=== PATIENT | male | born 1945 | race Caucasian/White ===

== ENCOUNTER → 2017-04-20 | Outpatient (CLI) | payer MEDICARE, BC ==
[2016-05-13 09:31] VITALS: BP 132/80
[~2017-04-20] MED LIST: CIALIS5 MG PO; KEFLEX250 M1 PO; PRILOSEC 20MG20 MG PO; SILDENAFIL CITR20 MG PO; VASERETIC 10 MG1 TAB PO
== END ==
LOC: LAB 07:27
DX: Z12.11 Encounter for screening for malignant neoplasm of colon (principal); R97.20 Elevated prostate specific antigen [PSA]; I49.3 Ventricular premature depolarization; M71.20 Synovial cyst of popliteal space [Baker], unspecified knee; E78.5 Hyperlipidemia, unspecified; N52.9 Male erectile dysfunction, unspecified

== ENCOUNTER → 2017-05-12 | Outpatient (CLI) | payer MEDICARE, BC ==
[~2017-05-12] VITALS: Ht 177.8 cm; Wt 92.3 kg
[2017-05-12 10:47] VITALS: BP 128/78
== END ==
LOC: AMSURD 10:41
DX: I49.3 Ventricular premature depolarization (principal)

== ENCOUNTER → 2018-04-07 | Outpatient (CLI) | payer MEDICARE, BC ==
[~2018-04-07] VITALS: Ht 180.3 cm; Wt 89.1 kg
[2018-04-07 08:52] LABS: HEMATOCRIT 47.2 % (42.0-52.0); HEMOGLOBIN 16.1 g/dL (13.5-18.0); MEAN CELL VOLUME 96 fl (78-100); MEAN CORPUSCULAR HEMOGLOBIN 33 pg (27-31); MEAN CORPUSCULAR HGB CONC 34 g/dL (33-37); MEAN PLATELET VOLUME 9.5 fl (7.4-10.4); PLATELET COUNT 244 K/mm3 (130-400); RED BLOOD COUNT 4.94 M/mm3 (4.20-5.60); RED CELL DISTRIBUTION WIDTH 12.4 % (11.5-14.5); WHITE BLOOD COUNT 5.3 K/mm3 (4.8-10.8)
[2018-04-07 09:03] LABS: ALBUMIN 4.4 g/dL (3.5-5.0); BUN/CREATININE RATIO 16.7 (6.0-26.0); CALCIUM 9.4 mg/dL (8.4-10.2); POTASSIUM 4.5 mmol/L (3.6-5.0); TOTAL BILIRUBIN 1.3 mg/dL (0.2-1.3); TOTAL PROTEIN 7.7 g/dL (6.3-8.2)
[2018-04-07 09:31] LABS: URINE APPEARANCE CLEAR; URINE BILIRUBIN NEGATIVE (NEGATIVE); URINE BLOOD NEGATIVE (NEGATIVE); URINE COLOR YELLOW; URINE GLUCOSE NEGATIVE (NEGATIVE); URINE KETONE NEGATIVE (NEGATIVE); URINE LEUKOCYTE ESTERASE NEGATIVE (NEGATIVE); URINE NITRATE NEGATIVE (NEGATIVE); URINE PROTEIN(semi-quant) NEGATIVE (NEGATIVE); URINE UROBILINOGEN NORMAL (NORMAL); URINE WBC 0-1 /hpf (0-3)
[2018-04-07 09:33] VITALS: BP 163/99
[2018-04-07 11:19] LABS: ERYTHROCYTE SEDIMENTATION RATE 1 mm/hr (0-20)
[2018-04-07 23:08] LABS: TESTOSTERONE 985 ng/dL (221-716)
== END ==
LOC: AMSURD 08:30
PROVIDERS: Internal Medicine
DX: Z01.818 Encounter for other preprocedural examination (principal); I10 Essential (primary) hypertension; Z12.5 Encounter for screening for malignant neoplasm of prostate; Z12.11 Encounter for screening for malignant neoplasm of colon; N52.9 Male erectile dysfunction, unspecified

== ENCOUNTER → 2019-04-17 | Outpatient (CLI) | payer MEDICARE, BC ==
[2018-04-07 09:33] VITALS: BP 163/99
[2019-04-17 07:33] LABS: HEMATOCRIT 44.8 % (42.0-52.0); HEMOGLOBIN 14.9 g/dL (13.5-18.0); MEAN CELL VOLUME 96 fl (78-100); MEAN CORPUSCULAR HEMOGLOBIN 32 pg (27-31); MEAN CORPUSCULAR HGB CONC 33 g/dL (33-37); MEAN PLATELET VOLUME 9.8 fl (7.4-10.4); PLATELET COUNT 237 K/mm3 (130-400); RED BLOOD COUNT 4.65 M/mm3 (4.20-5.60); RED CELL DISTRIBUTION WIDTH 12.3 % (11.5-14.5); WHITE BLOOD COUNT 5.6 K/mm3 (4.8-10.8)
[2019-04-17 07:36] LABS: POTASSIUM 4.3 mmol/L (3.5-5.1)
[2019-04-17 07:38] LABS: CALCIUM 9.5 mg/dL (8.3-10.5)
[2019-04-17 07:39] LABS: TOTAL PROTEIN 7.6 g/dL (6.2-8.1)
[2019-04-17 07:41] LABS: TOTAL BILIRUBIN 0.9 mg/dL (0.2-1.2)
[2019-04-17 08:07] LABS: PH-URINE 5.5 (5.0 - 8.0); URINE APPEARANCE CLEAR; URINE BILIRUBIN NEGATIVE (NEGATIVE); URINE BLOOD NEGATIVE (NEGATIVE); URINE COLOR YELLOW; URINE GLUCOSE NEGATIVE (NEGATIVE); URINE KETONE NEGATIVE (NEGATIVE); URINE LEUKOCYTE ESTERASE NEGATIVE (NEGATIVE); URINE MUCUS PRESENT (NOT PRESENT); URINE NITRATE NEGATIVE (NEGATIVE); URINE PROTEIN(semi-quant) NEGATIVE (NEGATIVE); URINE UROBILINOGEN NORMAL (NORMAL)
[2019-04-17 08:11] LABS: LYMPHOCYTE 38 % (20-51); MONOCYTE 11 % (3-10); NEUTROPHILS 49 % (42-75)
[2019-04-17 08:46] LABS: ERYTHROCYTE SEDIMENTATION RATE 2 mm/hr (0-20)
== END ==
LOC: LAB 07:14
PROVIDERS: Internal Medicine
DX: Z01.818 Encounter for other preprocedural examination (principal); Z12.5 Encounter for screening for malignant neoplasm of prostate; Z12.11 Encounter for screening for malignant neoplasm of colon; I10 Essential (primary) hypertension; N52.9 Male erectile dysfunction, unspecified

== ENCOUNTER → 2019-05-03 | Outpatient (CLI) | payer MEDICARE, BC ==
[~2019-05-03] VITALS: Ht 180.3 cm; Wt 87.7 kg
[2019-05-03 11:35] VITALS: BP 126/78
== END ==
LOC: AMSURD 09:52
DX: I49.3 Ventricular premature depolarization (principal)

== ENCOUNTER → 2020-04-16 | Outpatient (CLI) | payer MEDICARE, BC ==
[2019-05-03 11:35] VITALS: BP 126/78
[2020-04-16 08:04] LABS: HEMOGLOBIN 14.9 g/dL (13.5-18.0); MEAN CELL VOLUME 98 fl (78-100); MEAN CORPUSCULAR HEMOGLOBIN 33 pg (27-31); MEAN CORPUSCULAR HGB CONC 33 g/dL (33-37); MEAN PLATELET VOLUME 9.3 fl (7.4-10.4); PLATELET COUNT 248 K/mm3 (130-400); RED BLOOD COUNT 4.58 M/mm3 (4.20-5.60); RED CELL DISTRIBUTION WIDTH 12.2 % (11.5-14.5); WHITE BLOOD COUNT 5.5 K/mm3 (4.8-10.8)
[2020-04-16 08:14] LABS: ALBUMIN 4.1 g/dL (3.4-4.8); POTASSIUM 4.8 mmol/L (3.5-5.1)
[2020-04-16 08:15] LABS: CALCIUM 9.4 mg/dL (8.3-10.5)
[2020-04-16 08:17] LABS: TOTAL PROTEIN 7.4 g/dL (6.2-8.1)
[2020-04-16 08:19] LABS: TOTAL BILIRUBIN 0.9 mg/dL (0.2-1.2)
[2020-04-16 08:49] LABS: LYMPHOCYTE 25 % (20-51); MONOCYTE 12 % (3-10); NEUTROPHILS 62 % (42-75)
[2020-04-16 09:12] LABS: ERYTHROCYTE SEDIMENTATION RATE 0 mm/hr (0-20)
== END ==
LOC: LAB 07:44
PROVIDERS: Internal Medicine
DX: Z12.11 Encounter for screening for malignant neoplasm of colon (principal); E78.5 Hyperlipidemia, unspecified; R97.20 Elevated prostate specific antigen [PSA]; I49.3 Ventricular premature depolarization; N52.03 Combined arterial insufficiency and corporo-venous occlusive erectile dysfunction

== ENCOUNTER → 2021-03-31 | Outpatient (CLI) | payer MEDICARE, BC ==
[2021-03-31 07:29] LABS: BASO # 0.03 (0.02-0.10); EOS # 0.09 (0.04-0.40); EOS % 1.7 % (0.0-4.0); HEMATOCRIT 45.4 % (42.0-52.0); LYMPH# 1.38 (1.50-4.00); MEAN CELL VOLUME 99 fl (78-100); MEAN CORPUSCULAR HEMOGLOBIN 33 pg (27-31); MEAN CORPUSCULAR HGB CONC 33 g/dL (33-37); MONO # 0.75 (0.20-0.80); NEU # 3.02 (1.40-6.50); PLATELET COUNT 229 K/mm3 (130-400); RED BLOOD COUNT 4.59 M/mm3 (4.20-5.60); RED CELL DISTRIBUTION WIDTH 11.7 % (11.5-14.5); WHITE BLOOD COUNT 5.3 K/mm3 (4.8-10.8)
[2021-03-31 07:48] LABS: POTASSIUM 4.6 mmol/L (3.5-5.1)
[2021-03-31 07:49] LABS: ALBUMIN 4.1 g/dL (3.4-4.8)
[2021-03-31 07:50] LABS: CALCIUM 9.3 mg/dL (8.3-10.5)
[2021-03-31 08:39] LABS: ERYTHROCYTE SEDIMENTATION RATE 1 mm/hr (0-20)
== END ==
LOC: LAB 07:05
PROVIDERS: Internal Medicine
DX: Z12.5 Encounter for screening for malignant neoplasm of prostate (principal); E78.2 Mixed hyperlipidemia; I10 Essential (primary) hypertension; K90.9 Intestinal malabsorption, unspecified

== ENCOUNTER → 2021-04-09 | Outpatient (CLI) | payer MEDICARE, BC | LOC: RAD 08:36 | DX: I49.3 Ventricular premature depolarization (principal) ==

== ENCOUNTER → 2022-05-12 | Outpatient (CLI) | payer MEDICARE, BC ==
[2022-05-12 10:13] LABS: BASO # 0.07 K/mm3 (0.02-0.10); EOS # 0.05 K/mm3 (0.04-0.40); EOS % 0.8 % (0.0-4.0); HEMATOCRIT 41.9 % (42.0-52.0); HEMOGLOBIN 14.3 g/dL (13.5-18.0); LYMPH# 1.09 K/mm3 (1.50-4.00); MEAN CELL VOLUME 98 fl (78-100); MEAN CORPUSCULAR HEMOGLOBIN 33 pg (27-31); MEAN CORPUSCULAR HGB CONC 34 g/dL (33-37); MEAN PLATELET VOLUME 9.2 fl (7.4-10.4); MONO # 0.71 K/mm3 (0.20-0.80); NEU # 4.53 K/mm3 (1.40-6.50); PLATELET COUNT 267 K/mm3 (130-400); RED BLOOD COUNT 4.28 M/mm3 (4.20-5.60); RED CELL DISTRIBUTION WIDTH 11.9 % (11.5-14.5); WHITE BLOOD COUNT 6.5 K/mm3 (4.8-10.8)
[2022-05-12 10:33] LABS: ALBUMIN 4.1 g/dL (3.4-4.8); POTASSIUM 4.1 mmol/L (3.5-5.1)
[2022-05-12 10:34] LABS: CALCIUM 9.3 mg/dL (8.3-10.5)
[2022-05-12 10:36] LABS: TOTAL PROTEIN 7.2 g/dL (6.2-8.1)
[2022-05-12 10:42] LABS: MAGNESIUM 1.61 mg/dL (1.60-2.60)
== END ==
LOC: LAB 09:44
PROVIDERS: Internal Medicine
DX: Z12.5 Encounter for screening for malignant neoplasm of prostate (principal); Z12.11 Encounter for screening for malignant neoplasm of colon; K90.9 Intestinal malabsorption, unspecified; I10 Essential (primary) hypertension; E78.2 Mixed hyperlipidemia

== ENCOUNTER → 2023-10-06 | Outpatient (CLI) | payer MEDICARE, BC ==
[2023-10-06 12:26] LABS: BASO # 0.06 K/mm3 (0.02-0.10); EOS # 0.09 K/mm3 (0.04-0.40); EOS % 1.3 % (0.0-4.0); HEMATOCRIT 40.8 % (42.0-52.0); HEMOGLOBIN 13.6 g/dL (13.5-18.0); LYMPH# 1.09 K/mm3 (1.50-4.00); MEAN CELL VOLUME 101 fl (78-100); MEAN CORPUSCULAR HEMOGLOBIN 34 pg (27-31); MEAN CORPUSCULAR HGB CONC 33 g/dL (33-37); MEAN PLATELET VOLUME 9.4 fl (7.4-10.4); MONO # 0.83 K/mm3 (0.20-0.80); NEU # 5.06 K/mm3 (1.40-6.50); PLATELET COUNT 215 K/mm3 (130-400); RED BLOOD COUNT 4.03 M/mm3 (4.20-5.60); RED CELL DISTRIBUTION WIDTH 11.7 % (11.5-14.5); WHITE BLOOD COUNT 7.2 K/mm3 (4.8-10.8)
[2023-10-06 14:33] LABS: ALBUMIN 3.9 g/dL (3.4-4.8)
[2023-10-06 14:36] LABS: TOTAL PROTEIN 6.9 g/dL (6.2-8.1)
[2023-10-06 14:38] LABS: TOTAL BILIRUBIN 0.63 mg/dL (0.2-1.2)
[2023-10-06 14:44] LABS: MAGNESIUM 1.6 mg/dL (1.60-2.60)
== END ==
LOC: LAB 12:17
PROVIDERS: Internal Medicine
DX: E78.2 Mixed hyperlipidemia (principal); I10 Essential (primary) hypertension

== ENCOUNTER → 2024-05-15 | Outpatient (CLI) | payer MEDICARE, BC ==
[2024-05-15 07:59] LABS: BASO # 0.03 K/mm3 (0.02-0.10); EOS # 0.06 K/mm3 (0.04-0.40); HEMATOCRIT 41.8 % (42.0-52.0); HEMOGLOBIN 13.7 g/dL (13.5-18.0); LYMPH# 0.91 K/mm3 (1.50-4.00); MEAN CELL VOLUME 101 fl (78-100); MEAN CORPUSCULAR HEMOGLOBIN 33 pg (27-31); MEAN CORPUSCULAR HGB CONC 33 g/dL (33-37); MEAN PLATELET VOLUME 8.6 fl (7.4-10.4); MONO # 0.79 K/mm3 (0.20-0.80); NEU # 4.21 K/mm3 (1.40-6.50); PLATELET COUNT 253 K/mm3 (130-400); RED BLOOD COUNT 4.13 M/mm3 (4.20-5.60); RED CELL DISTRIBUTION WIDTH 11.9 % (11.5-14.5)
[2024-05-15 08:10] LABS: ALBUMIN 3.8 g/dL (3.4-4.8)
[2024-05-15 08:11] LABS: CALCIUM 9.6 mg/dL (8.3-10.5)
[2024-05-15 08:14] LABS: TOTAL BILIRUBIN 0.8 mg/dL (0.2-1.2)
[2024-05-15 08:19] LABS: MAGNESIUM 1.52 mg/dL (1.60-2.60)
[2024-05-16 08:24] LABS: TESTOSTERONE 1192 ng/dL (221-716)
== END ==
LOC: LAB 07:38
PROVIDERS: Internal Medicine
DX: Z12.11 Encounter for screening for malignant neoplasm of colon (principal); F52.21 Male erectile disorder; I48.91 Unspecified atrial fibrillation; K90.9 Intestinal malabsorption, unspecified; E78.2 Mixed hyperlipidemia; R97.20 Elevated prostate specific antigen [PSA]; R73.9 Hyperglycemia, unspecified

== ENCOUNTER 2024-05-21 09:24 | Emergency (ER) | payer MEDICARE, BC ==
[~2024-05-21] VITALS: Ht 180.3 cm; Wt 88.6 kg
[2024-05-21] MEDS ORDERED: NORVASC 10MG10 MG PO (10:06)
[2024-05-21] MEDS ORDERED: METOPROLOL SUCC25 M1 PO (10:07)
[2024-05-21] MEDS ORDERED: AMIODARONE200 MG PO (10:07)
[2024-05-21] MEDS ORDERED: HCTZ 25MG25 MG PO (10:08)
[2024-05-21] MEDS ORDERED: ELIQUIS5 MG PO (10:08)
[2024-05-21] MEDS ORDERED: TADALAFIL5 M1 PO (10:09)
[2024-05-21] MEDS ORDERED: CENTRUM SILVER1 EAC4 PO (10:10)
[2024-05-21] MEDS ORDERED: FLAXSEED1000 MG PO (10:10)
[2024-05-21] MEDS ORDERED: FISH OIL 1,201200 MG PO (10:11)
[2024-05-21] MEDS ORDERED: Mag/Al Hydrox/Simeth Susp 30 ML CUP PO ONE (10:45)
[2024-05-21 10:47] LABS: BASO # 0.04 K/mm3 (0.02-0.10); EOS # 0.03 K/mm3 (0.04-0.40); EOS % 0.4 % (0.0-4.0); HEMATOCRIT 41.7 % (42.0-52.0); HEMOGLOBIN 14.1 g/dL (13.5-18.0); LYMPH# 0.88 K/mm3 (1.50-4.00); MEAN CELL VOLUME 101 fl (78-100); MEAN CORPUSCULAR HEMOGLOBIN 34 pg (27-31); MEAN CORPUSCULAR HGB CONC 34 g/dL (33-37); MEAN PLATELET VOLUME 9.5 fl (7.4-10.4); MONO # 0.88 K/mm3 (0.20-0.80); NEU # 6.06 K/mm3 (1.40-6.50); PLATELET COUNT 259 K/mm3 (130-400); RED BLOOD COUNT 4.14 M/mm3 (4.20-5.60); RED CELL DISTRIBUTION WIDTH 12.1 % (11.5-14.5); WHITE BLOOD COUNT 7.9 K/mm3 (4.8-10.8)
[2024-05-21 10:51] LABS: ALBUMIN 3.8 g/dL (3.4-4.8); SODIUM 138 mmol/L (136-145)
[2024-05-21 10:52] LABS: CALCIUM 9.4 mg/dL (8.3-10.5)
[2024-05-21 10:54] LABS: GLUCOSE 106 mg/dL (75-110); TOTAL PROTEIN 7.2 g/dL (6.2-8.1)
[2024-05-21 10:55] LABS: CARBON DIOXIDE 24 mmol/L (23-31)
[2024-05-21 10:59] LABS: AST-SGOT 31 U/L (5-34)
[2024-05-21 11:00] LABS: ALT/SGPT 26 U/L (0-55)
[2024-05-21 11:09] LABS: TROPONIN-I < 0.030 ng/mL (0.00-0.033)
[2024-05-21 11:18] LABS: TOTAL BILIRUBIN 0.6 mg/dL (0.2-1.2)
[2024-05-21 12:21] VITALS: BP 130/78
== END 2024-05-21 11:53 | disposition home or self-care (01) ==
LOC: ED 09:24
PROVIDERS: Nurse Practitioner Family
DX: M94.0 Chondrocostal junction syndrome [Tietze] (principal); E66.9 Obesity, unspecified; Z68.27 Body mass index [BMI] 27.0-27.9, adult; Z79.01 Long term (current) use of anticoagulants